=== PATIENT | female | born 1980 | race Caucasian/White ===

== ENCOUNTER 2021-03-15 20:55 | Emergency (ER) | payer OTHER ==
--- NOTE | 2021-03-15 21:34 | ED Physician Documentation ---
History of Present Illness - Stated complaint Stated Complaint: CLOSE ENCOUNTER WITH BAT - Chief complaint Chief Complaint: General - History obtained from History obtained from: Patient - History of Present Illness Timing: How many days ago (2) Quality: She states a bat was inside her house and flew around near her head. She could feel fluttering. It did not actually land on her. No bites or scratches. She is subsequently heard this would be a risk for rabies after discussing with her primary care. Directed to come to the ER. Review of Systems Constitutional: denies: Fever, Chills Nose: denies: Rhinorrhea / runny nose, Congestion Throat: denies: Sore throat Respiratory: denies: Cough PD PAST MEDICAL HISTORY - Past Medical History Past Medical History: Yes Cardiovascular: None Respiratory: Asthma Endocrine/Autoimmune: HyPERthyroidism GI: None, Other : None HEENT: Dental implants Psych: None Musculoskeletal: None Derm: Other - Past Surgical History Past Surgical History: Yes Derm: Skin cancer surgery - Present Medications Home Medications: Ambulatory Orders Medication Instructions Recorded Confirmed Azelastine HCl [Astelin] 1 spray IH BID 01/12/14 03/15/21 Beclomethasone 40 Mcg [Qvar 40] 2 puffs IH BID 01/12/14 03/15/21 Fluticasone 110 Mcg [Flovent] 2 puffs IH BID 01/12/14 03/15/21 Sumatriptan Succinate [Imitrex] 4 mg SQ ONCE PRN 01/12/14 03/15/21 Levalbuterol HCl [Xopenex] 1.25 mg IH ONCE PRN 06/25/14 03/15/21 HYDROcod/ACETAM 5/325 [Noel 5/325] 1 - 2 ea PO Q6H PRN #15 tablet 11/03/15 03/15/21 Rabies Vaccine [Rabavert] 2.5 unit IM ONCE #3 unit 03/15/21 - Allergies Allergies/Adverse Reactions: Allergies Allergy/AdvReac Type Severity Reaction Status Date / Time lactase [From Dairy Aid] Allergy Severe Respiratory Verified 11/03/15 10:02 peanut Allergy Severe Respiratory Verified 11/03/15 10:02 clindamycin Allergy Intermediate Rash Verified 11/03/15 10:02 latex Allergy Intermediate Rash Verified 11/03/15 10:02 albuterol AdvReac Severe Tachycardia Verified 11/03/15 10:02 Tape Allergy Intermediate Rash Uncoded 11/03/15 10:02 - Social History Does the pt smoke?: No Smoking Status: Never smoker Does the pt drink ETOH?: No Does the pt have substance abuse?: No - Immunizations Immunizations are current?: Yes Immunizations: TDAP current <10years - POLST Patient has POLST: No PD ED PE NORMAL - Vitals Vital signs reviewed: Yes - General General: Alert and oriented X 3, No acute distress, Well developed/nourished - HEENT HEENT: Other (No obvious scratch or bite new around the ear side of the face or neck where she felt it closest to her.) - Derm Derm: Normal color, Warm and dry - Neuro Neuro: Alert and oriented X 3, No motor deficit, Normal speech Results - Vitals Vitals: Vital Signs - 24 hr 03/15/21 03/16/21 21:17 00:14 Temperature 36.8 C 37.1 C Heart Rate 85 91 Respiratory 16 18 Rate Blood Pressure 123/76 127/74 O2 Saturation 97 98 Oxygen O2 Source Room air PD MEDICAL DECISION MAKING - ED course Complexity details: considered differential (She had a bat fly near her head 2 days ago. No bites or scratches. However she got reference material off the Department of [facility] and also from her primary care that directed her to come to the ER for vaccination and treatment.), d/w patient ED course: These types of exposures without any bite or scratch are certainly very low risk for shaq rabies. The patient however is wanting the vaccine series so we will administer the beginning parts. She is to get the repeat doses at the three seven and 14-day intervals. Options to consider would be medications from the pharmacy and getting it administered at her primary care office as opposed to coming back to the ER. She should contact her primary care to see if that is feasible. Departure - Departure Disposition: 01 Home, Self Care Clinical Impression: Exposure to bat without known bite Condition: Stable Record reviewed to determine appropriate education?: Yes Instructions: Rabies Prescriptions: Rabies Vaccine [Rabavert] 2.5 unit IM ONCE #3 unit Comments: This sounds like a low risk exposure for rabies given no bite or scratches. However you have decided to go with the rabies vaccine series. He received a dose today along with some immunoglobulin. The vaccine series is 4 doses with the next doses being in 3, 7 and 14 days. I adjusted the timing to fall on the Fridays rather than Wednesday as this would be easier to perhaps have it done through your primary care office or a walk-in clinic or such. Those places would not have the rabies vaccine typically. So alternative options are to get the vaccine from the pharmacy and bring it to 1 of those locations to have it administered. Offices oten give other types of vaccines, mainly the issue of having it in stock. Check with them first before going that option. Alternatively would be to return to the ER at the specified dates for repeat dosing here. Discharge Date/Time: 03/16/21 00:14
[2021-03-15] MEDS ORDERED: RABIES VACCINE 2.5 UNIT SYRINGE IM ONE (21:55)
[2021-03-15] MEDS ORDERED: RABIES IMMUNE GLOBULIN 300 UNITS/2 ML IM STA (21:55)
[2021-03-16 00:15] VITALS: BP 127/74
== END 2021-03-16 00:14 | disposition home or self-care (01) ==
LOC: ED 20:55
DX: Z20.3 Contact with and (suspected) exposure to rabies (principal); Z23 Encounter for immunization
CPT/HCPCS: 90471; 96372; 99281; 99282

== ENCOUNTER 2023-02-17 12:19 | Outpatient (CLI) | payer BC | END 2023-02-17 23:59 | disposition short-term general hospital (02) | LOC: EMS 12:19 | DX: R10.11 Right upper quadrant pain (principal); R10.12 Left upper quadrant pain; R11.2 Nausea with vomiting, unspecified; R53.1 Weakness; M79.10 Myalgia, unspecified site; R42 Dizziness and giddiness; R53.83 Other fatigue | CPT/HCPCS: A0425; A0427 ==